=== PATIENT | male | born 1950 | race Caucasian/White ===

== ENCOUNTER → 2017-03-26 | Day surgery (SDC) | payer MEDICARE, OTHER ==
[~2017-03-26] MED LIST: ARICEPT5 MG PO; ASPIR 8181 MG PO; COUMADIN5 MG PO; CRESTOR40 MG PO; GLIPIZIDE10 MG PO; GLUCOPHAGE1000 MG PO; HUMALOG MI SQ; MELATONIN1 MG PO; MIRALAX PO; MUCINEX600 MG PO; PRINIVIL20 MG PO; PROTONIX40 MG PO; TRICOR145 MG PO
== END | disposition home or self-care (01) ==
LOC: SDC 07:50
DX: H26.8 Other specified cataract (principal); E11.9 Type 2 diabetes mellitus without complications; I10 Essential (primary) hypertension; J45.909 Unspecified asthma, uncomplicated; M19.90 Unspecified osteoarthritis, unspecified site; Z79.01 Long term (current) use of anticoagulants; Z79.899 Other long term (current) drug therapy; Z88.6 Allergy status to analgesic agent; Z88.1 Allergy status to other antibiotic agents; Z86.718 Personal history of other venous thrombosis and embolism; Z90.49 Acquired absence of other specified parts of digestive tract; Z90.89 Acquired absence of other organs
CPT/HCPCS: C1780; J0171; J1100; J1580

== ENCOUNTER → 2017-04-23 | Day surgery (SDC) | payer MEDICARE, OTHER | END | disposition home or self-care (01) | LOC: SDC 07:21 | DX: H26.8 Other specified cataract (principal); E11.9 Type 2 diabetes mellitus without complications; I10 Essential (primary) hypertension; M19.90 Unspecified osteoarthritis, unspecified site; Z85.038 Personal history of other malignant neoplasm of large intestine; Z86.711 Personal history of pulmonary embolism; Z79.899 Other long term (current) drug therapy; Z79.84 Long term (current) use of oral hypoglycemic drugs; Z88.6 Allergy status to analgesic agent | CPT/HCPCS: C1780; J1100; J1580 ==